=== PATIENT | male | born 1985 ===

== ENCOUNTER 2019-03-24 17:44 | Inpatient (IN) | payer MEDICAID ==
[~2019-03-24] VITALS: Ht 185.4 cm; Wt 68.7 kg
[2019-03-24] MEDS ORDERED: SODIUM CHLORIDE 0.9% 2,200 ML IV ONE (21:15)
[2019-03-24 21:56] LABS: BASOPHILS % (AUTO) 0.2 % (0.0-2.0); EOSINOPHILS % (AUTO) 1.1 % (1.0-6.0); HEMATOCRIT 27.3 % (41-53); HEMOGLOBIN 9.2 g/dL (13.5-17.5); LYMPHOCYTES # (AUTO) 1.7 K/uL (1.0-4.8); LYMPHOCYTES % (AUTO) 35.9 % (22.0-44.0); MEAN CORPUSCULAR HEMOGLOBIN 27.5 pg (26.0-34.0); MEAN CORPUSCULAR HGB CONC 33.8 G/dL (31.0-37.0); MEAN CORPUSCULAR VOLUME 81 fL (80-100); MONOCYTES # (AUTO) 0.5 K/uL (0.1-1.0); MONOCYTES % (AUTO) 11.3 % (2.0-9.0); NEUTROPHILS # (AUTO) 2.4 K/uL (1.8-7.7); NEUTROPHILS % (AUTO) 51.5 % (40.0-70.0); RED BLOOD CELL COUNT(AUTO) 3.35 MIL/uL (4.50-5.90); RED CELL DISTRIBUTION WIDTH 13.1 % (11.5-14.5)
[2019-03-24 22:09] LABS: ANION GAP 11 mmol/L (8-16); CALCIUM, TOTAL 8.3 mg/dL (8.8-10.5); CARBON DIOXIDE 23 mmol/L (22-29); CHLORIDE 106 mmol/L (98-107); CREATININE 0.93 mg/dL (0.60-1.30); GLOMERULAR FILTR. RATE CALC > 60 mL/min (>60); GLUCOSE,RANDOM 106 mg/dL (70-110); POTASSIUM 4.3 mmol/L (3.5-5.1); SODIUM SERUM 140 mmol/L (136-145); UREA NITROGEN, BLOOD 22 mg/dL (7-18)
[2019-03-24 22:15] LABS: ALANINE AMINOTRANSFERASE 27 U/L (12-78); ALBUMIN 3.1 g/dL (3.4-5.0); ALKALINE PHOSPHATASE 136 U/L (46-116); ASPARTATE AMINOTRANSFERASE 20 U/L (15-37); BILIRUBIN,TOTAL 0.7 mg/dL (0.1-1.0); C-REACTIVE PROTEIN QUANT 4.44 mg/dL (0.00-0.30); CREATINE KINASE, TOTAL ONLY 61 U/L (39-308); TOTAL PROTEIN, SERUM 7.4 g/dL (6.4-8.2)
[2019-03-24 22:34] LABS: PLATELET COUNT (AUTO) 94 K/uL (150-450)
[2019-03-24 23:14] LABS: ERYTHROCYTE SEDIMENTATION RATE 42 MM/HR (0-15)
[2019-03-24] MEDS ORDERED: MAGNESIUM SULFATE 2 GM/WATER 50 ML IV ONE (23:15)
[2019-03-25 00:09] LABS: APPEARANCE,URINE CLEAR (CLEAR); BILIRUBIN,URINE NEGATIVE (NEGATIVE); GLUCOSE, URINE (UA) NEGATIVE (NEGATIVE); KETONES,URINE NEGATIVE (NEGATIVE); LEUKOCYTE ESTERASE ,URINE NEGATIVE (NEGATIVE); NITRATE,URINE NEGATIVE (NEGATIVE); OCCULT BLOOD,URINE TRACE (NEGATIVE); PROTEIN,URINE NEGATIVE (NEGATIVE)
[2019-03-25 00:15] LABS: AMPHET/METH SCREEN,URINE NEGATIVE (NEGATIVE); BARBITURATE SCREEN, URINE NEGATIVE (NEGATIVE); BENZODIAZEPINES SCREEN,URINE NEGATIVE (NEGATIVE); CANNABINOID SCREEN,URINE NEGATIVE (NEGATIVE); COCAINE SCREEN,URINE NEGATIVE (NEGATIVE); METHADONE SCREEN, URINE NEGATIVE (NEGATIVE); OPIATE SCREEN,URINE NEGATIVE (NEGATIVE); PHENCYCLIDINE SCREEN,URINE NEGATIVE (NEGATIVE)
[2019-03-25 00:22] LABS: BACTERIA,URINE None Seen /HPF (None Seen); RBC,URINE 0-2 /HPF (0-2); SQUAMOUS EPITHELIAL CELL,UR None Seen /LPF (None Seen); WBC,URINE 0-2 /HPF (0-5)
[2019-03-25] MEDS ORDERED: IOVERSOL 350 MG/ML 150 ML VIAL ONE (00:53)
[2019-03-25] MEDS ORDERED: SODIUM CHLORIDE 0.9% 100 ML ONE (00:53)
[2019-03-25] MEDS ORDERED: SODIUM CHLORIDE 0.9% 1,000 ML IV ONE (02:30)
[2019-03-25] MEDS ORDERED: ACETAMINOPHEN 500 MG TABLET PO ONE (04:30)
[2019-03-25] MEDS ORDERED: ONDANSETRON HCL 4 MG/2 ML VIAL IVP PRN ×3 (04:30→17:30)
[2019-03-25] MEDS ORDERED: 0.9% SODIUM CHLORIDE 10 ML SYRINGE IVP PRN ×2 (04:30→17:30)
[2019-03-25] MEDS ORDERED: ACETAMINOPHEN 325 MG TABLET PO PRN ×3 (04:30→17:30)
[2019-03-25] MEDS ORDERED: KETOROLAC TROMETHAMINE 30 MG/ML VIAL IVP ONE (04:30)
[2019-03-25] MEDS ORDERED: MAGNESIUM HYDROXIDE SUSPENSION 30 ML UDCUP PO PRN (07:45)
[2019-03-25] MEDS ORDERED: ZOLPIDEM TARTRATE 5 MG TABLET PO PRN (07:45)
[2019-03-25] MEDS ORDERED: BISACODYL 10 MG RECTAL RECTAL SUPPOSITORY PR PRN (07:45)
[2019-03-25] MEDS ORDERED: HYDROCODONE/ACETAMINOPHEN 5-325 MG TABLET PO PRN (07:45)
[2019-03-25] MEDS ORDERED: MORPHINE SULFATE 2 MG/ML SYRINGE IVP PRN (07:45)
[2019-03-25] MEDS: HEPARIN SODIUM,PORCINE 5,000 UNITS/ML VIAL SQ SCH ×2 (08:42→19:00)
[2019-03-25] MEDS ORDERED: PANTOPRAZOLE SODIUM 40 MG DR TABLET PO SCH (09:00)
[2019-03-25] MEDS ORDERED: DOCUSATE SODIUM 100 MG CAPSULE PO SCH (09:00)
[2019-03-25] MEDS: PANTOPRAZOLE SODIUM 40 MG/VIAL IVP SCH (09:19)
[2019-03-25] MEDS ORDERED: BACITRACIN 28.4 GM OINTMENT TP ONE (13:41)
[2019-03-25] MEDS ORDERED: LIDOCAINE 1%/EPI 1:200,000/PF 10 ML VIAL ONE (13:41)
[2019-03-25] MEDS ORDERED: BUPIVACAINE HCL/PF 0.5% 30 ML VIAL ONE (13:42)
[2019-03-25] MEDS ORDERED: BUPIVACAINE LIPOSOME/PF 1.3%-13.3MG/ML SUSPENSION 20 ML VIAL INJ ONE (13:45)
[2019-03-25] MEDS ORDERED: MEPERIDINE-PF 25 MG/ML VIAL IVP PRN (15:15)
[2019-03-25] MEDS ORDERED: HYDROmorphone 2 MG/ML SYRINGE IVP PRN ×2 (15:15→17:30)
[2019-03-25] MEDS ORDERED: FentaNYL CITRATE-PF 100 MCG/2 ML VIAL IVP PRN (15:15)
[2019-03-25] MEDS ORDERED: DiphenhydrAMINE HCL 50 MG/ML VIAL IVP PRN (17:30)
[2019-03-25 18:42] VITALS: BP 129/89
[2019-03-25] MEDS: OXYGEN THERAPY IH SCH (20:00)
[2019-03-25 20:13] VITALS: BP 160/91
[2019-03-25] MEDS: DOCUSATE SODIUM 100 MG CAPSULE PO SCH (21:43)
[2019-03-25] MEDS: ZOLPIDEM TARTRATE 10 MG TABLET PO SCH (21:43)
[2019-03-25] MEDS: OxyCODONE HCL/ACETAMINOPHEN 5-325 MG TABLET PO PRN (21:46)
[2019-03-25] MEDS: SODIUM CHLORIDE 0.9% 1,000 ML IV SCH (22:41)
[2019-03-25] MEDS ORDERED: INFLUENZA VIRUS VACCINE QVS 2019-20 (3YR+)/PF 60 MCG/0.5 ML SYRINGE IM ONE (23:45)
[2019-03-26] VITALS (7 sets, daily range): BP systolic 130–158; BP diastolic 70–92
[2019-03-26] MEDS: HEPARIN SODIUM,PORCINE 5,000 UNITS/ML VIAL SQ SCH ×3 (00:13→16:03)
[2019-03-26] MEDS: OxyCODONE HCL/ACETAMINOPHEN 5-325 MG TABLET PO PRN ×4 (02:29→20:36)
[2019-03-26] MEDS ORDERED: ONDANSETRON HCL 4 MG/2 ML VIAL IVP ONE (05:19)
[2019-03-26] MEDS ORDERED: PROPOFOL 1% 20 ML VIAL IVP ONE (05:19)
[2019-03-26] MEDS ORDERED: DEXAMETHASONE SOD PHOS 4 MG/ML VIAL IVP ONE (05:19)
[2019-03-26] MEDS ORDERED: LIDOCAINE/PF 2% 5 ML VIAL IM ONE (05:19)
[2019-03-26] MEDS ORDERED: SUCCINYLCHOLINE CHLORIDE 20 MG/ML 10 ML VIAL IVP ONE (05:19)
[2019-03-26] MEDS ORDERED: KETOROLAC TROMETHAMINE 60 MG/2 ML VIAL IM ONE (05:19)
[2019-03-26] MEDS ORDERED: FentaNYL CITRATE-PF 100 MCG/2 ML VIAL IVP ONE (05:25)
[2019-03-26] MEDS ORDERED: MIDAZOLAM HCL 2 MG/2 ML VIAL IVP ONE (05:25)
[2019-03-26] MEDS: DOCUSATE SODIUM 100 MG CAPSULE PO SCH ×2 (08:25→20:36)
[2019-03-26] MEDS: PANTOPRAZOLE SODIUM 40 MG/VIAL IVP SCH (08:25)
[2019-03-26] MEDS: OXYGEN THERAPY IH SCH (08:26)
[2019-03-26] MEDS: SODIUM CHLORIDE 0.9% 1,000 ML IV SCH (11:38)
[2019-03-26] MEDS ORDERED: LORazepam 2 MG/ML VIAL IVP PRN (15:30)
[2019-03-26 17:34] LABS: BASOPHILS % (AUTO) 0.1 % (0.0-2.0); EOSINOPHILS % (AUTO) 0.3 % (1.0-6.0); HEMATOCRIT 22.5 % (41-53); HEMOGLOBIN 7.4 g/dL (13.5-17.5); LYMPHOCYTES # (AUTO) 1.6 K/uL (1.0-4.8); LYMPHOCYTES % (AUTO) 35.6 % (22.0-44.0); MEAN CORPUSCULAR HEMOGLOBIN 26.8 pg (26.0-34.0); MEAN CORPUSCULAR HGB CONC 33.1 G/dL (31.0-37.0); MEAN CORPUSCULAR VOLUME 81 fL (80-100); MONOCYTES # (AUTO) 0.3 K/uL (0.1-1.0); NEUTROPHILS # (AUTO) 2.5 K/uL (1.8-7.7); RED BLOOD CELL COUNT(AUTO) 2.77 MIL/uL (4.50-5.90); RED CELL DISTRIBUTION WIDTH 13.1 % (11.5-14.5)
[2019-03-26 17:39] LABS: ANION GAP 9 mmol/L (8-16); CALCIUM, TOTAL 7.9 mg/dL (8.8-10.5); CARBON DIOXIDE 21 mmol/L (22-29); CHLORIDE 108 mmol/L (98-107); CREATININE 0.98 mg/dL (0.60-1.30); GLOMERULAR FILTR. RATE CALC > 60 mL/min (>60); GLUCOSE,RANDOM 135 mg/dL (70-110); POTASSIUM 5.4 mmol/L (3.5-5.1); SODIUM SERUM 138 mmol/L (136-145); UREA NITROGEN, BLOOD 24 mg/dL (7-18)
[2019-03-26 17:57] LABS: PLATELET COUNT (AUTO) 86 K/uL (150-450)
[2019-03-26] MEDS ORDERED: GABAPENTIN 300 MG CAPSULE PO PRN (18:15)
[2019-03-26] MEDS: OLANZapine 5 MG RAPDIS TABLET PO SCH (20:36)
[2019-03-26] MEDS: ZOLPIDEM TARTRATE 10 MG TABLET PO SCH (20:36)
[2019-03-27] MEDS ORDERED: SODIUM CHLORIDE 0.9% 250 ML IV ONE (00:07)
[2019-03-27] MEDS ORDERED: SODIUM CHLORIDE 0.9% 1,000 ML IV SCH ×2 (00:15→01:05)
[2019-03-27] MEDS: OXYGEN THERAPY IH SCH ×3 (00:15→20:23)
[2019-03-27] MEDS: HEPARIN SODIUM,PORCINE 5,000 UNITS/ML VIAL SQ SCH ×3 (00:15→16:00)
[2019-03-27] MEDS ORDERED: SODIUM CHLORIDE 0.9% 250 ML IV STA ×2 (00:51→01:15)
[2019-03-27] MEDS: SODIUM CHLORIDE 0.9% 1,000 ML IV SCH ×2 (01:15→08:25)
[2019-03-27 03:30] VITALS: BP 146/76
[2019-03-27] MEDS ORDERED: IOVERSOL 350 MG/ML 100 ML VIAL ONE (03:52)
[2019-03-27 06:00] LABS: BASOPHILS % (AUTO) 0.1 % (0.0-2.0); EOSINOPHILS % (AUTO) 0.7 % (1.0-6.0); HEMATOCRIT 22.2 % (41-53); HEMOGLOBIN 7.3 g/dL (13.5-17.5); LYMPHOCYTES # (AUTO) 1.2 K/uL (1.0-4.8); LYMPHOCYTES % (AUTO) 32.2 % (22.0-44.0); MEAN CORPUSCULAR HEMOGLOBIN 26.8 pg (26.0-34.0); MEAN CORPUSCULAR HGB CONC 32.9 G/dL (31.0-37.0); MEAN CORPUSCULAR VOLUME 81 fL (80-100); MONOCYTES # (AUTO) 0.3 K/uL (0.1-1.0); MONOCYTES % (AUTO) 7.6 % (2.0-9.0); NEUTROPHILS # (AUTO) 2.3 K/uL (1.8-7.7); NEUTROPHILS % (AUTO) 59.4 % (40.0-70.0); RED BLOOD CELL COUNT(AUTO) 2.73 MIL/uL (4.50-5.90); RED CELL DISTRIBUTION WIDTH 12.8 % (11.5-14.5)
[2019-03-27 06:24] LABS: ANION GAP 9 mmol/L (8-16); CARBON DIOXIDE 22 mmol/L (22-29); CHLORIDE 107 mmol/L (98-107); CREATININE 0.88 mg/dL (0.60-1.30); GLUCOSE,RANDOM 98 mg/dL (70-110); POTASSIUM 4.6 mmol/L (3.5-5.1); SODIUM SERUM 138 mmol/L (136-145); UREA NITROGEN, BLOOD 24 mg/dL (7-18)
[2019-03-27 06:25] LABS: ALANINE AMINOTRANSFERASE 18 U/L (12-78); ALBUMIN 2.2 g/dL (3.4-5.0); ALKALINE PHOSPHATASE 100 U/L (46-116); ASPARTATE AMINOTRANSFERASE 13 U/L (15-37); BILIRUBIN,TOTAL 0.6 mg/dL (0.1-1.0); CALCIUM, TOTAL 7.7 mg/dL (8.8-10.5); GLOMERULAR FILTR. RATE CALC > 60 mL/min (>60); TOTAL PROTEIN, SERUM 5.8 g/dL (6.4-8.2)
[2019-03-27 07:31] LABS: PLATELET COUNT (AUTO) 78 K/uL (150-450)
[2019-03-27 07:50] VITALS: BP 143/76
[2019-03-27] MEDS: DOCUSATE SODIUM 100 MG CAPSULE PO SCH ×2 (08:18→20:25)
[2019-03-27] MEDS: PANTOPRAZOLE SODIUM 40 MG/VIAL IVP SCH (08:25)
[2019-03-27] MEDS: FLUoxetine HCL 20 MG CAPSULE PO SCH (08:27)
[2019-03-27] MEDS ORDERED: METOPROLOL TARTRATE 25 MG TABLET PO ONE (11:15)
[2019-03-27 11:49] VITALS: BP 124/83
[2019-03-27] MEDS ORDERED: MAGNESIUM SULFATE 2 GM/WATER 50 ML IV ONE (12:00)
[2019-03-27 12:05] LABS: THYROID STIMULATING HORMONE < 0.01 uIU/mL (0.36-3.74)
[2019-03-27 12:06] LABS: ABG A-A DIFF O2 24.8 mmHg (10-20.0); ABG BASE EXCESS -3.9 mmol/L (-2.0-3.0); ABG CARBOXYHEMOGLOBIN 1.2 % (0.0-1.5); ABG HCO3 21.6 mmol/L (22.0-26.0); ABG METHEMOGLOBIN 0.3 % (0.0-1.5); ABG OXYGEN CONTENT 11.2 mL/dL (15.0-23.0); ABG OXYGEN SATURATION 94.4 % (95.0-98.0); ABG PCO2 35 mmHg (35-45); ABG TOTAL HEMOGLOBIN 8.5 G/dL (12.0-18.0); O2 DEVICE,BLOOD GAS ROOM AIR (ROOM AIR); PO2, ARTERIAL BG 82.7 mmHg (92.0-100.0); SITE, BLOOD GAS LFT RADIAL; SOURCE, BLOOD GAS ARTERIAL; TEMPERATURE, FAHRENHEIT, BG 101.7 FAHREN (96.0-98.6)
[2019-03-27] MEDS: METHIMAZOLE 10 MG TABLET PO SCH ×2 (14:28→17:17)
[2019-03-27 16:09] VITALS: BP 123/77
[2019-03-27] MEDS: PROPRANOLOL HCL 20 MG TABLET PO SCH ×2 (16:38→20:25)
[2019-03-27 20:14] VITALS: BP 124/72
[2019-03-27] MEDS: OxyCODONE HCL/ACETAMINOPHEN 5-325 MG TABLET PO PRN (20:25)
[2019-03-27] MEDS: OLANZapine 5 MG RAPDIS TABLET PO SCH (20:25)
[2019-03-27] MEDS: ZOLPIDEM TARTRATE 10 MG TABLET PO SCH (20:25)
[2019-03-27] MEDS ORDERED: METOPROLOL TARTRATE 25 MG TABLET PO SCH (21:00)
[2019-03-27 23:42] VITALS: BP 121/69
[2019-03-28] MEDS: METHIMAZOLE 10 MG TABLET PO SCH ×4 (00:15→17:07)
[2019-03-28] MEDS: SODIUM CHLORIDE 0.9% 1,000 ML IV SCH (00:32)
[2019-03-28 04:33] VITALS: BP 124/72
[2019-03-28] MEDS: PIPERACILLIN/TAZO 3.375 GM/D5W 50 ML IV SCH ×3 (06:25→17:08)
[2019-03-28] MEDS ORDERED: MethylPREDNISolone SOD SUCC 125 MG/2 ML VIAL IVP SCH (09:00)
[2019-03-28] MEDS ORDERED: MAGNESIUM SULFATE 2 GM/WATER 50 ML IV ONE (09:45)
[2019-03-28] MEDS: PANTOPRAZOLE SODIUM 40 MG/VIAL IVP SCH (10:18)
[2019-03-28] MEDS: HEPARIN SODIUM,PORCINE 5,000 UNITS/ML VIAL SQ SCH ×3 (10:45→16:03)
[2019-03-28 14:09] VITALS: BP 152/82
[2019-03-28] MEDS ORDERED: BENZOCAINE 20% 50 MCG/SPRAY 57 GM ONE (14:14)
[2019-03-28] MEDS ORDERED: FentaNYL CITRATE-PF 100 MCG/2 ML VIAL ONE (14:40)
[2019-03-28] MEDS ORDERED: MIDAZOLAM HCL 2 MG/2 ML VIAL ONE (14:40)
[2019-03-28] MEDS ORDERED: BENZOCAINE 20% 50 MCG/SPRAY 57 GM TP ONE (15:00)
[2019-03-28] MEDS ORDERED: MIDAZOLAM HCL 2 MG/2 ML VIAL IVP ONE (15:00)
[2019-03-28] MEDS ORDERED: FentaNYL CITRATE-PF 100 MCG/2 ML VIAL IVP ONE (15:00)
[2019-03-28 15:10] VITALS: BP 141/75
[2019-03-28] MEDS: DOCUSATE SODIUM 100 MG CAPSULE PO SCH ×2 (16:02→20:49)
[2019-03-28] MEDS: FLUoxetine HCL 20 MG CAPSULE PO SCH (16:02)
[2019-03-28] MEDS: PROPRANOLOL HCL 20 MG TABLET PO SCH ×2 (16:03→20:49)
[2019-03-28] MEDS: OxyCODONE HCL/ACETAMINOPHEN 5-325 MG TABLET PO PRN (16:04)
[2019-03-28] MEDS: OXYGEN THERAPY IH SCH (20:00)
[2019-03-28 20:38] VITALS: BP 155/78
[2019-03-28] MEDS: OLANZapine 5 MG RAPDIS TABLET PO SCH (20:49)
[2019-03-28] MEDS: ZOLPIDEM TARTRATE 10 MG TABLET PO SCH (20:49)
[2019-03-29] MEDS: PIPERACILLIN/TAZO 3.375 GM/D5W 50 ML IV SCH ×4 (00:42→18:13)
[2019-03-29] MEDS: METHIMAZOLE 10 MG TABLET PO SCH ×4 (00:42→18:13)
[2019-03-29] MEDS: HEPARIN SODIUM,PORCINE 5,000 UNITS/ML VIAL SQ SCH ×3 (00:43→16:46)
[2019-03-29 01:15] VITALS: BP 128/64
[2019-03-29] MEDS ORDERED: SODIUM CHLORIDE 0.9% 100 ML ONE (05:24)
[2019-03-29 07:05] LABS: EOSINOPHILS % (AUTO) 0 % (1.0-6.0); HEMATOCRIT 22.2 % (41-53); HEMOGLOBIN 7.4 g/dL (13.5-17.5); LYMPHOCYTES # (AUTO) 0.6 K/uL (1.0-4.8); LYMPHOCYTES % (AUTO) 15.1 % (22.0-44.0); MEAN CORPUSCULAR HEMOGLOBIN 27.2 pg (26.0-34.0); MEAN CORPUSCULAR HGB CONC 33.5 G/dL (31.0-37.0); MEAN CORPUSCULAR VOLUME 81 fL (80-100); MONOCYTES # (AUTO) 0.4 K/uL (0.1-1.0); MONOCYTES % (AUTO) 10.2 % (2.0-9.0); NEUTROPHILS # (AUTO) 2.7 K/uL (1.8-7.7); NEUTROPHILS % (AUTO) 74.7 % (40.0-70.0); PLATELET COUNT (AUTO) 98 K/uL (150-450); RED BLOOD CELL COUNT(AUTO) 2.74 MIL/uL (4.50-5.90); RED CELL DISTRIBUTION WIDTH 13.1 % (11.5-14.5)
[2019-03-29 07:24] LABS: ANION GAP 7 mmol/L (8-16); CALCIUM, TOTAL 7.9 mg/dL (8.8-10.5); CARBON DIOXIDE 22 mmol/L (22-29); CHLORIDE 103 mmol/L (98-107); CREATININE 1.09 mg/dL (0.60-1.30); GLOMERULAR FILTR. RATE CALC > 60 mL/min (>60); GLUCOSE,RANDOM 217 mg/dL (70-110); POTASSIUM 5.3 mmol/L (3.5-5.1); SODIUM SERUM 132 mmol/L (136-145); UREA NITROGEN, BLOOD 39 mg/dL (7-18)
[2019-03-29 07:41] VITALS: BP 135/59
[2019-03-29] MEDS: OXYGEN THERAPY IH SCH ×2 (08:00→20:00)
[2019-03-29 09:23] VITALS: BP 140/62
[2019-03-29] MEDS: FLUoxetine HCL 20 MG CAPSULE PO SCH (09:29)
[2019-03-29] MEDS: DOCUSATE SODIUM 100 MG CAPSULE PO SCH ×2 (09:29→21:59)
[2019-03-29] MEDS: PROPRANOLOL HCL 20 MG TABLET PO SCH ×4 (09:29→21:59)
[2019-03-29] MEDS: PANTOPRAZOLE SODIUM 40 MG/VIAL IVP SCH (09:29)
[2019-03-29 15:24] VITALS: BP 127/71
[2019-03-29] MEDS: OxyCODONE HCL/ACETAMINOPHEN 5-325 MG TABLET PO PRN (16:46)
[2019-03-29 19:54] VITALS: BP 132/63
[2019-03-29] MEDS: ZOLPIDEM TARTRATE 10 MG TABLET PO SCH (21:59)
[2019-03-29] MEDS: OLANZapine 5 MG RAPDIS TABLET PO SCH (21:59)
[2019-03-30] VITALS (7 sets, daily range): BP systolic 109–124; BP diastolic 50–74
[2019-03-30] MEDS: METHIMAZOLE 10 MG TABLET PO SCH ×5 (00:20→23:48)
[2019-03-30] MEDS: PIPERACILLIN/TAZO 3.375 GM/D5W 50 ML IV SCH ×2 (00:20→05:30)
[2019-03-30] MEDS: HEPARIN SODIUM,PORCINE 5,000 UNITS/ML VIAL SQ SCH ×4 (08:00→23:42)
[2019-03-30] MEDS: PANTOPRAZOLE SODIUM 40 MG/VIAL IVP SCH (08:44)
[2019-03-30] MEDS: PROPRANOLOL HCL 20 MG TABLET PO SCH ×4 (08:44→23:48)
[2019-03-30] MEDS: MULTIVITAMINS WITH MINERALS, THERAPEUTIC TABLET PO SCH (08:44)
[2019-03-30] MEDS: FLUoxetine HCL 20 MG CAPSULE PO SCH (08:44)
[2019-03-30] MEDS: DOCUSATE SODIUM 100 MG CAPSULE PO SCH ×2 (08:44→20:16)
[2019-03-30] MEDS: OXYGEN THERAPY IH SCH ×2 (09:10→20:00)
[2019-03-30] MEDS: ZOLPIDEM TARTRATE 10 MG TABLET PO SCH (20:16)
[2019-03-30] MEDS: OLANZapine 5 MG RAPDIS TABLET PO SCH (20:17)
[2019-03-31 04:24] VITALS: BP 120/61
[2019-03-31] MEDS: METHIMAZOLE 10 MG TABLET PO SCH ×3 (05:21→18:04)
[2019-03-31 07:31] VITALS: BP 124/61
[2019-03-31 07:38] LABS: EOSINOPHILS % (AUTO) 1.8 % (1.0-6.0); HEMOGLOBIN 7.8 g/dL (13.5-17.5); LYMPHOCYTES # (AUTO) 1.4 K/uL (1.0-4.8); MEAN CORPUSCULAR HEMOGLOBIN 27.9 pg (26.0-34.0); MEAN CORPUSCULAR VOLUME 82 fL (80-100); MONOCYTES # (AUTO) 0.3 K/uL (0.1-1.0); MONOCYTES % (AUTO) 7.3 % (2.0-9.0); NEUTROPHILS # (AUTO) 2.1 K/uL (1.8-7.7); NEUTROPHILS % (AUTO) 54.9 % (40.0-70.0); PLATELET COUNT (AUTO) 82 K/uL (150-450); RED BLOOD CELL COUNT(AUTO) 2.81 MIL/uL (4.50-5.90); RED CELL DISTRIBUTION WIDTH 13.2 % (11.5-14.5)
[2019-03-31 07:52] LABS: ANION GAP 7 mmol/L (8-16); CALCIUM, TOTAL 8.1 mg/dL (8.8-10.5); CARBON DIOXIDE 25 mmol/L (22-29); CHLORIDE 106 mmol/L (98-107); GLOMERULAR FILTR. RATE CALC > 60 mL/min (>60); GLUCOSE,RANDOM 164 mg/dL (70-110); POTASSIUM 5.2 mmol/L (3.5-5.1); SODIUM SERUM 138 mmol/L (136-145); UREA NITROGEN, BLOOD 38 mg/dL (7-18)
[2019-03-31] MEDS: OXYGEN THERAPY IH SCH ×2 (08:00→20:00)
[2019-03-31] MEDS: HEPARIN SODIUM,PORCINE 5,000 UNITS/ML VIAL SQ SCH ×2 (08:00→16:00)
[2019-03-31] MEDS: PROPRANOLOL HCL 20 MG TABLET PO SCH ×4 (08:09→20:12)
[2019-03-31] MEDS: FLUoxetine HCL 20 MG CAPSULE PO SCH (08:09)
[2019-03-31] MEDS: MULTIVITAMINS WITH MINERALS, THERAPEUTIC TABLET PO SCH (08:09)
[2019-03-31] MEDS: DOCUSATE SODIUM 100 MG CAPSULE PO SCH ×2 (08:09→20:12)
[2019-03-31] MEDS: PANTOPRAZOLE SODIUM 40 MG/VIAL IVP SCH (08:09)
[2019-03-31 11:16] VITALS: BP 122/57
[2019-03-31 16:35] VITALS: BP 129/66
[2019-03-31 20:02] VITALS: BP 134/65
[2019-03-31] MEDS: OLANZapine 5 MG RAPDIS TABLET PO SCH (20:12)
[2019-03-31] MEDS: ZOLPIDEM TARTRATE 10 MG TABLET PO SCH (20:12)
[2019-04-01] MEDS: METHIMAZOLE 10 MG TABLET PO SCH ×4 (00:17→17:33)
[2019-04-01] MEDS: HEPARIN SODIUM,PORCINE 5,000 UNITS/ML VIAL SQ SCH ×3 (00:17→16:00)
[2019-04-01 00:36] VITALS: BP 142/64
[2019-04-01 04:57] VITALS: BP 143/77
[2019-04-01 07:23] VITALS: BP 138/67
[2019-04-01] MEDS: OXYGEN THERAPY IH SCH ×2 (08:00→20:00)
[2019-04-01] MEDS: DOCUSATE SODIUM 100 MG CAPSULE PO SCH ×2 (10:05→20:41)
[2019-04-01] MEDS: PANTOPRAZOLE SODIUM 40 MG/VIAL IVP SCH (10:05)
[2019-04-01] MEDS: FLUoxetine HCL 20 MG CAPSULE PO SCH (10:05)
[2019-04-01] MEDS: MULTIVITAMINS WITH MINERALS, THERAPEUTIC TABLET PO SCH (10:05)
[2019-04-01] MEDS: PROPRANOLOL HCL 20 MG TABLET PO SCH ×4 (10:06→20:42)
[2019-04-01 11:45] VITALS: BP 138/67
[2019-04-01 16:59] VITALS: BP 130/59
[2019-04-01] MEDS ORDERED: SODIUM CHLORIDE 0.9% 500 ML IV ONE (19:07)
[2019-04-01 19:59] VITALS: BP 141/69
[2019-04-01] MEDS: OLANZapine 5 MG RAPDIS TABLET PO SCH (20:42)
[2019-04-01] MEDS ORDERED: IPRATROPIUM BROMIDE 0.5 MG/2.5 ML NEB SOLUTION NEB PRN (22:00)
[2019-04-01] MEDS ORDERED: ALBUTEROL SULFATE 2.5 MG/0.5 ML NEB SOLUTION NEB PRN (22:00)
[2019-04-02] VITALS (7 sets, daily range): BP systolic 120–142; BP diastolic 55–67
[2019-04-02] MEDS: METHIMAZOLE 10 MG TABLET PO SCH ×4 (06:00→18:00)
[2019-04-02] MEDS: HEPARIN SODIUM,PORCINE 5,000 UNITS/ML VIAL SQ SCH ×3 (08:00→16:00)
[2019-04-02] MEDS: OXYGEN THERAPY IH SCH ×2 (08:00→20:43)
[2019-04-02] MEDS: PANTOPRAZOLE SODIUM 40 MG/VIAL IVP SCH (08:29)
[2019-04-02] MEDS: MULTIVITAMINS WITH MINERALS, THERAPEUTIC TABLET PO SCH (08:29)
[2019-04-02] MEDS: PROPRANOLOL HCL 20 MG TABLET PO SCH ×4 (08:30→20:44)
[2019-04-02] MEDS: OxyCODONE HCL/ACETAMINOPHEN 5-325 MG TABLET PO PRN (08:30)
[2019-04-02] MEDS: DOCUSATE SODIUM 100 MG CAPSULE PO SCH ×2 (08:30→21:00)
[2019-04-02] MEDS: FLUoxetine HCL 20 MG CAPSULE PO SCH (08:30)
[2019-04-02 11:42] LABS: EOSINOPHILS % (AUTO) 1.6 % (1.0-6.0); HEMATOCRIT 26.4 % (41-53); HEMOGLOBIN 8.8 g/dL (13.5-17.5); LYMPHOCYTES # (AUTO) 1.6 K/uL (1.0-4.8); MEAN CORPUSCULAR HEMOGLOBIN 27.5 pg (26.0-34.0); MEAN CORPUSCULAR HGB CONC 33.4 G/dL (31.0-37.0); MEAN CORPUSCULAR VOLUME 82 fL (80-100); MONOCYTES # (AUTO) 0.6 K/uL (0.1-1.0); MONOCYTES % (AUTO) 9.6 % (2.0-9.0); NEUTROPHILS # (AUTO) 4.1 K/uL (1.8-7.7); NEUTROPHILS % (AUTO) 63.8 % (40.0-70.0); PLATELET COUNT (AUTO) 125 K/uL (150-450); RED CELL DISTRIBUTION WIDTH 13.1 % (11.5-14.5)
[2019-04-02 12:09] LABS: ALANINE AMINOTRANSFERASE 31 U/L (12-78); ALKALINE PHOSPHATASE 127 U/L (46-116); ANION GAP 7 mmol/L (8-16); ASPARTATE AMINOTRANSFERASE 16 U/L (15-37); BILIRUBIN,TOTAL 0.4 mg/dL (0.1-1.0); CALCIUM, TOTAL 8.6 mg/dL (8.8-10.5); CARBON DIOXIDE 22 mmol/L (22-29); CHLORIDE 102 mmol/L (98-107); CREATININE 1.05 mg/dL (0.60-1.30); GLOMERULAR FILTR. RATE CALC > 60 mL/min (>60); GLUCOSE,RANDOM 114 mg/dL (70-110); SODIUM SERUM 131 mmol/L (136-145); TOTAL PROTEIN, SERUM 7.5 g/dL (6.4-8.2); UREA NITROGEN, BLOOD 41 mg/dL (7-18)
[2019-04-02 12:15] LABS: POTASSIUM 6.1 mmol/L (3.5-5.1)
[2019-04-02] MEDS ORDERED: SODIUM POLYSTYRENE SULFONATE 15 GM/60 ML SUSPENSION BOTTLE PO ONE (12:30)
[2019-04-02] MEDS: OLANZapine 5 MG RAPDIS TABLET PO SCH (20:44)
[2019-04-02] MEDS: ZOLPIDEM TARTRATE 10 MG TABLET PO SCH (20:45)
[2019-04-03] MEDS: METHIMAZOLE 10 MG TABLET PO SCH ×3 (00:19→12:16)
[2019-04-03 04:18] VITALS: BP 119/61
[2019-04-03 06:38] LABS: EOSINOPHILS % (AUTO) 2.3 % (1.0-6.0); HEMATOCRIT 24.3 % (41-53); HEMOGLOBIN 8.3 g/dL (13.5-17.5); LYMPHOCYTES # (AUTO) 1.2 K/uL (1.0-4.8); LYMPHOCYTES % (AUTO) 29.4 % (22.0-44.0); MEAN CORPUSCULAR HEMOGLOBIN 28.1 pg (26.0-34.0); MEAN CORPUSCULAR HGB CONC 34.3 G/dL (31.0-37.0); MEAN CORPUSCULAR VOLUME 82 fL (80-100); MONOCYTES # (AUTO) 0.5 K/uL (0.1-1.0); MONOCYTES % (AUTO) 12.3 % (2.0-9.0); NEUTROPHILS # (AUTO) 2.4 K/uL (1.8-7.7); PLATELET COUNT (AUTO) 103 K/uL (150-450); RED BLOOD CELL COUNT(AUTO) 2.96 MIL/uL (4.50-5.90); RED CELL DISTRIBUTION WIDTH 13.2 % (11.5-14.5)
[2019-04-03 06:53] LABS: ANION GAP 9 mmol/L (8-16); CALCIUM, TOTAL 8.4 mg/dL (8.8-10.5); CARBON DIOXIDE 25 mmol/L (22-29); CHLORIDE 106 mmol/L (98-107); CREATININE 1.15 mg/dL (0.60-1.30); GLOMERULAR FILTR. RATE CALC > 60 mL/min (>60); GLUCOSE,RANDOM 97 mg/dL (70-110); POTASSIUM 5.2 mmol/L (3.5-5.1); SODIUM SERUM 140 mmol/L (136-145); UREA NITROGEN, BLOOD 43 mg/dL (7-18)
[2019-04-03 07:24] VITALS: BP 134/57
[2019-04-03] MEDS: HEPARIN SODIUM,PORCINE 5,000 UNITS/ML VIAL SQ SCH ×2 (08:00)
[2019-04-03] MEDS: OXYGEN THERAPY IH SCH (08:00)
[2019-04-03] MEDS: DOCUSATE SODIUM 100 MG CAPSULE PO SCH (08:09)
[2019-04-03] MEDS: PROPRANOLOL HCL 20 MG TABLET PO SCH ×2 (08:10→12:15)
[2019-04-03] MEDS: MULTIVITAMINS WITH MINERALS, THERAPEUTIC TABLET PO SCH (08:10)
[2019-04-03] MEDS: FLUoxetine HCL 20 MG CAPSULE PO SCH (08:10)
[2019-04-03] MEDS ORDERED: PANTOPRAZOLE SODIUM 40 MG DR TABLET PO SCH (09:00)
[2019-04-03 11:24] VITALS: BP 129/69
== END 2019-04-03 15:30 | DRG 308 ==
LOC: EMS 17:49 → 5S 03-25 12:24
PROVIDERS: ADMIT Internal Medicine; ATTEND Internal Medicine
PROC: 0QSB06Z Reposition Right Lower Femur with Intramedullary Internal Fixation Device, Open Approach (ICD-10-PCS; principal; 2019-03-25 15:30)
PROC: B24BZZ4 Ultrasonography of Heart with Aorta, Transesophageal (ICD-10-PCS; 2019-03-28)
DX: S72.144A Nondisplaced intertrochanteric fracture of right femur, initial encounter for closed fracture (principal); E43 Unspecified severe protein-calorie malnutrition; D61.818 Other pancytopenia; D69.6 Thrombocytopenia, unspecified; E83.42 Hypomagnesemia; E87.5 Hyperkalemia; I27.21 Secondary pulmonary arterial hypertension; R71.0 Precipitous drop in hematocrit; F20.9 Schizophrenia, unspecified; E05.00 Thyrotoxicosis with diffuse goiter without thyrotoxic crisis or storm; F12.90 Cannabis use, unspecified, uncomplicated; F15.90 Other stimulant use, unspecified, uncomplicated; F17.210 Nicotine dependence, cigarettes, uncomplicated; F32.9 Major depressive disorder, single episode, unspecified; F41.0 Panic disorder [episodic paroxysmal anxiety]; N28.89 Other specified disorders of kidney and ureter; J45.909 Unspecified asthma, uncomplicated; I35.8 Other nonrheumatic aortic valve disorders; Z59.0 Homelessness; Z81.8 Family history of other mental and behavioral disorders; Z91.19 Patient's noncompliance with other medical treatment and regimen; Z79.899 Other long term (current) drug therapy; Z28.21 Immunization not carried out because of patient refusal; Z68.20 Body mass index [BMI] 20.0-20.9, adult; W18.39XA Other fall on same level, initial encounter; Y93.89 Activity, other specified; Y92.89 Other specified places as the place of occurrence of the external cause; Y99.8 Other external cause status
CPT/HCPCS: 36600; 70450; 71260; 71275; 72125; 73502; 73552; 74177; 82805; 83605; 83735; 84145; 84439; 84443; 85651; 86140; 87040; 93005; 93306; 93312; 97110; 97116; 97162; 97166; 97530; 97535; C9113; C9290; J0330; J1100; J1170; J1644; J1885; J2060; J2250; J2405; J2543; J2704; J2930; J3010; J3475; J3490; J7030; J7040; J7050